=== PATIENT | male | born 1965 | race Caucasian/White ===

== ENCOUNTER 2024-07-03 10:37 | Emergency (ER) | payer SELFPAY ==
[2024-07-03 10:43] VITALS: BP 113/77; PULSE 91; RESP 12; TEMP 36.5; O2SAT 98
--- NOTE | 2024-07-03 11:00 | DI.CT_ITS ---
Exam(s) CT NECK W EXAM: CT NECK W CLINICAL HISTORY: Left-sided neck pain. TECHNIQUE: Imaging Protocol: Axial computed tomography images with coronal and sagittal reformatted images were created and reviewed CONTRAST MATERIAL: Intravenous: Omnipaque 350 Contrast volume:100 ml contrast COMPARISON: No exams were available for comparison FINDINGS: Parotids: Normal. Submandibular glands: Normal. Thyroid gland: Normal. Lymph nodes: There are multiple abnormal confluent, matted low density lymph nodes on the left side o f the neck, deep to the sternocleidomastoid muscle measuring roughly 3.5 by 2.3 by 4.2cm. There are o ther smaller nodes seen in the posterior chain. This colonic conglomeration of lymph nodes causes obs truction of the left jugular vein. It is reconstructed distally by collaterals. There are small right -sided lymph nodes, not definitely pathologically enlarged. Carotids arteries: No significant stenosis or dissection. Vertebral arteries: No significant stenosis or dissection. Soft tissues: The there is a mass at the base of the tongue/floor of the mouth measuring 3.2 x 2.0 b y 2.2 cm. It is at the level of the anterior to the level of the epiglottis. There is posterior exten sienna but no invasion of the epiglottis. The adenoids are unremarkable. The epiglottis and vocal cords are within normal limits. Lungs: Images through both lung apices are unremarkable. Bones: Severe degenerative changes of the cervical spine. No destructive bony lesions. Visualized portions of the brain and orbits: Unremarkable. Sinuses and mastoids: Minimal mucosal thickening. IMPRESSION: 3.2 centimeter mass at the base of the tongue, floor of the malformed with extension posteriorly. Ext ensive left-sided adenopathy which is obstructing the left jugular vein. Findings called to Dr. Arnold of the emergency department RADIATION DOSE DELIVERED: 247.8mGy.cm Total DLP DATA REPOSITORY: All CT scans at this facility are submitted to the National Radiology Data Registry (NRDR) Dose Index Registry (DIR) with the [employer] (A[employer]). RADIATION OPTIMIZATION: All CT scans at this facility use at least one of these dose optimization te chniques: automated exposure control; mA and/or kV adjustment per patient size (includes targeted exa ms where dose is matched to clinical indication); or iterative reconstruction.
--- NOTE | 2024-07-03 11:03 | ED.GENADUL_ITS ---
Discharge Plan Disposition Patient Disposition: Home Discharge Details Clinical Impression: Oral mass Primary Care Provider: Unknown,Unknown ED Provider: Bill Arnold Home Meds and New Rx's Prescriptions: No Action No Known Home Meds Discharge Instructions Additional Instructions: You were seen in the emergency department for your neck pain. You are found to have a mass at the base of your tongue for which she received steroids. Please return to the emergency if you develop shortness of breath difficulty swallowing or had any other concerns. Otherwise please follow-up with ear nose and throat team next week on July 09 at 1 PM. For your pain please take medications as follows: 1. Take acetaminophen (Tylenol), 1,000 mg (two 500 mg tabs) every 6 hours Referrals: [facility] [Provider Group] Discharge Data Discharge Date/Time-TO BE ENTERED AT DEPARTURE: 07/03/24 15:00 HPI General Date/Time Provider Initiated Documentation: 07/03/24 10:50 . HPI Narrative: MDM This is an overall very well-appearing normothermic and not tachycardic 58-year-old male with left neck swelling and tenderness concerning for the possibility of abscess given recent URI symptoms and pharyngitis for which he will undergo CT soft tissue neck with IV contrast. Patient is not septic so I do not feel he required broad-spectrum antibiotics nor assessment of lactate nor blood cultures. Given his age and his [id number] history of tobacco use malignancy is certainly high on the differential. He will likely benefit from ENT follow-up as an outpatient. Handling secretions without fevers so doubt epiglottitis. Based on lack of persistent pharyngitis and patient's age I did not swab for strep pharyngitis. I considered viral URI however patient is having no fevers chills nor cough so I did not order viral swab. Nontoxic so doubt bacterial tracheitis. Uvula midline so doubt peritonsillar abscess. No shortness of breath or cough to suggest pneumonia so do not feel the patient required a chest x-ray. No fluctuance to suggest abscess. No erythema to suggest cellulitis. Patient is nontoxic so my suspicion for Lemierre's syndrome is low. 2:[address] scan returned with a 3 cm mass at the base of the tongue with extensive left-sided adenopathy obstructing the left jugular vein. No thrombus. This is certainly the cause of the fullness in his left neck. I spoke to Cinthia Christensen from ENT. He reviewed the patient's scan. She reported that the patient would benefit from biopsy either in ENT clinic if feasible or in the operating room. She has arranged outpatient follow-up for the patient on Tuesday afternoon at 1 PM next week. Patient was saturating well on room air. He tells me that he is tolerating a soft diet. He has had no difficulty breathing. Given his persistent pharyngitis I touch base with Joy about the possibility of single oral dose of dexamethasone. She felt that this would not be harmful. Given the possible benefits I treated the patient with single oral dose of dexamethasone and acetaminophen. We discussed at length that he should return to the emergency department if you develop difficulty breathing difficulty eating or any difficulty handling his secretions. He understood his return indications and was discharged with an empiric trial of expectant outpatient management. HPI This is a 58-year-old male current smoker with a [id number] history of smoking. Emergency department via private vehicle in the setting of sore throat for the past approximately 1 month. Patient notes that there were other people sick at a job site last month. He developed a sore throat. This improved. He subsequently developed some neck discomfort and a bulge on the left side of his neck after lifting something heavy several days ago. He has not had any cough fevers or phlegm in the past 2 weeks. He denies unintentional weight loss and night sweats. He denies routine ethanol and illicits. Exam General: Well-appearing in no acute distress speaking in complete sentences. Head: Normocephalic, atraumatic. Eye: Extraocular eye movements intact. No conjunctival injection. No scleral icterus. Ear, nose, mouth, throat: Grossly normal inspection. Normal voice, handling secretions normally. No significant posterior oropharynx erythema. Uvula midline. Neck: Trachea midline. Anterior side of the left neck there is a full approximately 3 x 3 cm area. No fluctuance. No erythema. Cardiovascular: Well-perfused distal extremities. Respiratory: Nonlabored respiration. Clear lungs bilaterally. Gastrointestinal: Nondistended abdomen. Musculoskeletal: No edema. Moving all 4 extremities spontaneously. Skin: Normal for age and race, grossly normal temperature and turgor. No acute rash. Neurologic: Alert and appropriate, no apparent acute deficits. Psychiatric: Mood and manner are appropriate. Grooming and personal hygiene are appropriate. Related Data Home Medications ?Medication ?Instructions ?Recorded ?Confirmed Unknown [No Known Home Meds] 07/03/24 07/03/24 Allergies Allergy/AdvReac Type Severity Reaction Status Date / Time No Known Allergies Allergy Unverified 07/03/24 10:49 General Stated Complaint: Sorethroat CRAIG: 4 Course Vital Signs Vital signs: Vital Signs Temperature 36.5 C 07/03/24 10:43 Pulse 91 H 07/03/24 10:43 Respiratory Rate 12 07/03/24 10:43 Blood Pressure 113/77 07/03/24 10:43 Pulse Oximetry 98 07/03/24 10:43 Temperature 36.5 C 07/03/24 10:43 Temperature Source Oral 07/03/24 10:43 Pulse 91 H 07/03/24 10:43 Respiratory Rate 12 07/03/24 10:43 Blood Pressure 113/77 07/03/24 10:43 Blood Pressure Position Sitting 07/03/24 10:43 Pulse Oximetry 98 07/03/24 10:43 Oxygen Delivery Method Room Air 07/03/24 10:43 Oxygen Flow Rate 0 07/03/24 10:43 Pain Level 2 07/03/24 10:43 Medical Decision Making Quality:SDOH Health Related Social Needs: No Data to Display PFSH All Active Problems (Updated 07/03/24 @ 14:48 by Bill Arnold MD) Oral mass (Acute) Social History Smoking/Tobacco Use Status: Current every day Tobacco Type: cigarettes Tobacco: How many years used: 35 Smoking risk assessment performed?: Yes Alcohol Intake: never Drug use: Never Substance use type: does not use Do you feel safe at home: Yes Do you feel safe in your relationship?: Yes
[2024-07-03] MEDS: Acetaminophen 500 MG TAB 1000 MG PO (11:23)
[2024-07-03 11:44] LABS: Abs Immature Grans 0.03 10^3/uL (0.0-0.06); Absolute Basophil Count 0.09 10^3/uL (0.0-0.2); Absolute Lymphocyte Count 1.96 10^3/uL (1.2-3.4); Absolute Monocyte Count 0.72 10^3/uL (0.1-0.8); Absolute Neutrophil Count 4.91 10^3/uL (1.2-6.7); Basophils % 1.1 %; Eosinophils % 2.5 %; HCT 46.4 % (40.0-50.0); HGB 15.5 g/dL (13.5-17.5); Immature Grans % 0.4 %; Lymphocytes % 24.8 %; MCH 31.2 pg (27.0-33.0); MCHC 33.4 % (32.0-36.0); MCV 93 fL (80-95); MPV 9.7 fL (8.0-11.0); Monocytes % 9.1 %; Neutrophils % 62.1 %; Platelet Count 297 10^3/uL (130-400); RBC 4.97 10^6/uL (4.36-5.78); RDW 12.8 % (11.8-14.1); RDW-SD 44.1 fL; WBC 7.91 10^3/uL (4.4-10.8)
[2024-07-03 11:54] LABS: Anion Gap 5.8 mmol/L (3-11); BUN 11 mg/dL (7-18); CO2 33.2 mmol/L (21.0-32.0); CREATININE 0.9 mg/dL (0.70-1.30); Calcium 9.6 mg/dL (8.5-10.1); Chloride 102 mmol/L (98-107); Estimated GFR 97.78 (mL/min/1.73m2); Glucose 100 mg/dL (74-106); Sodium 141 mmol/L (136-145)
[2024-07-03] MEDS: Normal Saline - Diluent 50 ML VIAL IJ (13:30)
[2024-07-03] MEDS: Omnipaque 350 MG/ML 100 ML BTL IJ (13:31)
[2024-07-03 14:43] VITALS: BP 114/84; PULSE 60; RESP 14; O2SAT 98
[2024-07-03] MEDS: Dexamethasone 4 MG TAB 10 MG PO (14:59)
[2024-07-03 15:00] VITALS: TEMP 37
== END 2024-07-03 15:00 | disposition home or self-care (01) ==
PROVIDERS: Emergency Provider Emergency Medicine
DX: K14.8 Other diseases of tongue (principal); R59.0 Localized enlarged lymph nodes; F17.210 Nicotine dependence, cigarettes, uncomplicated
CPT/HCPCS: 70491; 80048; 99284; 85025; J3490; J8540

== ENCOUNTER 2024-07-09 14:30 | Outpatient (REF) | payer SELFPAY ==
--- NOTE | 2024-07-09 13:42 | TONG_PTH ---
PATIENT: Refugio Kapadia LOC: [facility] U#:[id number] AGE/SX: 58/M ROOM: RE07/09/[address]: Soren Flynn MD : 1965 BED: DIS: 07/09/2024 SPEC #: [id number] RECD: 07/09/24 17:48 STATUS: ERI REQ #: [id number] AUSTEN: 07/09/24 13:[address]: Soren Flynn DEPT: Surgical Specimen RECD BY: Minerva Clay ENTERED: 07/09/24 17:48 SP TYPE: MIYA DENIS DR: Unknown,Unknown Tissues: 1 - TONGUE BIOPSY Procedures: GROSS AND MICRO LEVEL 4 Comments: [id number]
== END 2024-07-09 14:31 | disposition home or self-care (01) ==
LOC: LBO 14:30
PROVIDERS: Visit Provider Otolaryngology
DX: J35.1 Hypertrophy of tonsils (principal)
CPT/HCPCS: 88305

== ENCOUNTER 2024-07-16 12:51 | Outpatient (REF) | payer SELFPAY ==
--- NOTE | 2024-07-16 11:45 | PAPNONF_PTH ---
PATIENT: Refugio Kapadia LOC: [facility] U#:[id number] AGE/SX: 58/M ROOM: RE07/16/[address]: Soren Flynn MD : 1965 BED: DIS: 07/16/2024 SPEC #: [id number] RECD: 07/16/24 16:24 STATUS: ERI REQ #: [id number] AUSTEN: 07/16/24 11:[address]: Soren Flynn DEPT: [facility] Cytology RECD BY: Minerva Clay ENTERED: 07/16/24 16:26 SP TYPE: SHARLENE DENIS DR: Unknown,Unknown Tissues: 1 - BODY FLUID CYTO-FINE NEEDLE ASPIRATE-[facility] Procedures: BODY FLUID CYTO-FINE NEEDLE ASPIRATE-[facility] Comments: [id number] (REFRIGERATED)
== END 2024-07-16 12:52 | disposition home or self-care (01) ==
LOC: LBN 12:51
PROVIDERS: Visit Provider Otolaryngology
DX: C44.42 Squamous cell carcinoma of skin of scalp and neck (principal)
CPT/HCPCS: 88104